=== PATIENT | male | born 1970 | race Caucasian/White ===

== ENCOUNTER 2018-04-10 18:45 | Emergency (ER) | payer MEDICAID ==
[~2018-04-10] VITALS: Ht 182.9 cm; Wt 68.2 kg
[~2018-04-10 18:45] MED LIST: AMOX-580 PO; HYDR-569 PO; IBUP-1986 PO
[2018-04-10] MEDS ORDERED: famotidine/PF 10 mg/ml inj IV ONE (19:40)
[2018-04-10] MEDS ORDERED: metoclopramide 5 mg/ml inj IV ONE (19:40)
[2018-04-10] MEDS ORDERED: normal saline 1000ML IV soln IVB ONE ×4 (19:40→23:05)
[2018-04-10 20:01] LABS: BASOPHILS % (AUTO) 0.6 % (0-1); EOSINOPHILS # (AUTO) 0.1 X10'3 (0-0.9); EOSINOPHILS % (AUTO) 1.7 % (0-6); HEMATOCRIT 52.5 % (42.0-52.0); LYMPHOCYTES # (AUTO) 1.1 X10'3 (1.1-4.8); LYMPHOCYTES % (AUTO) 12.8 % (21-51); MEAN CORPUSCULAR HEMOGLOBIN 31.7 PG (27.0-31.0); MEAN CORPUSCULAR HGB CONC 34.4 % (33.0-36.5); MONOCYTES # (AUTO) 0.3 X10'3 (0-0.9); MONOCYTES % (AUTO) 3.9 % (2-12); PLATELET COUNT 283 X10'3 (140-440); RED BLOOD COUNT 5.71 X10'6 (4.70-6.10); RED CELL DISTRIBUTION WIDTH 13.7 % (11.5-14.5); WHITE BLOOD COUNT 8.6 X10'3 (4.5-11.0)
[2018-04-10 20:07] LABS: HEMOGLOBIN 18.1 g/dl (14.0-17.9)
[2018-04-10 20:17] LABS: ALANINE AMINOTRANSFERASE 27 U/L (12-78); ALBUMIN 5.2 G/DL (3.4-5.0); ALBUMIN/GLOBULIN RATIO 1.1 (1.1-1.5); ALKALINE PHOSPHATASE 119 IU/L (46-116); ANION GAP 16 (8-16); ASPARTATE AMINO TRANSFERASE 30 U/L (10-37); BILIRUBIN,TOTAL 0.9 MG/DL (0.1-1.0); BLOOD UREA NITROGEN 36 MG/DL (7-18); BUN/CREATININE RATIO 13.6 (5.4-32.0); CALCIUM 10.7 MG/DL (8.5-10.1); CHLORIDE 99 MMOL/L (99-107); CREATININE 2.64 MG/DL (0.60-1.10); GLUCOSE 99 MG/DL (70-104); LIPASE 138 U/L (73-393); POTASSIUM 4.1 MMOL/L (3.5-5.1); SODIUM 140 MMOL/L (135-145); eGFR 26 ML/MIN
[2018-04-10] MEDS ORDERED: ringers solution, lactated 1000ml IV soln IV ONE (20:30)
[2018-04-10 22:20] LABS: ALBUMIN 3.8 G/DL (3.4-5.0); ANION GAP 10 (8-16); BLOOD UREA NITROGEN 35 MG/DL (7-18); BUN/CREATININE RATIO 17.6 (5.4-32.0); CALCIUM 8.6 MG/DL (8.5-10.1); CHLORIDE 106 MMOL/L (99-107); CREATININE 1.99 MG/DL (0.60-1.10); GLUCOSE 89 MG/DL (70-104); POTASSIUM 4.1 MMOL/L (3.5-5.1); SODIUM 141 MMOL/L (135-145); TOTAL CARBON DIOXIDE 24.8 MMOL/L (24-32); eGFR 36 ML/MIN
[2018-04-11 05:27] VITALS: BP 118/67
== END 2018-04-11 05:34 | disposition home or self-care (01) ==
LOC: ER 18:46
DX: T67.5XXA Heat exhaustion, unspecified, initial encounter (principal); N28.9 Disorder of kidney and ureter, unspecified; F17.200 Nicotine dependence, unspecified, uncomplicated; F12.90 Cannabis use, unspecified, uncomplicated; Z56.0 Unemployment, unspecified; Z59.0 Homelessness; Z79.899 Other long term (current) drug therapy; X58.XXXA Exposure to other specified factors, initial encounter; Y93.89 Activity, other specified; Y92.89 Other specified places as the place of occurrence of the external cause; Y99.8 Other external cause status
CPT/HCPCS: 36415; 80048; 80053; 83690; 85025; 93005; 96361; 96374; 96375; 99285; J2765; J3490; J7030; J7120

== ENCOUNTER 2019-07-14 20:01 | Emergency (ER) | payer MEDICAID ==
[~2019-07-14] VITALS: Ht 182.9 cm; Wt 81.8 kg
[~2019-07-14 20:01] MED LIST changes: +HYDR-4383 PO; -HYDR-569 PO
[2019-07-14 21:02] VITALS: BP 138/85
[2019-07-14] MEDS ORDERED: LIDOcaine 1% w/epiNEPHrine 1:200,000 30ml vial IM ONE (21:05)
--- NOTE | 2019-07-14 21:51 | NUR ---
pt in bed yelling at police worker.pt is cooperative with the staff ,informed the pt not to scream,pt apologize and verbalized understanding.
== END 2019-07-14 22:59 | disposition home or self-care (01) ==
LOC: ER 20:01
DX: S02.2XXA Fracture of nasal bones, initial encounter for closed fracture (principal); S02.40EA Zygomatic fracture, right side, initial encounter for closed fracture; S01.81XA Laceration without foreign body of other part of head, initial encounter; S01.01XA Laceration without foreign body of scalp, initial encounter; F12.90 Cannabis use, unspecified, uncomplicated; Z59.0 Homelessness; Z56.0 Unemployment, unspecified; Y04.0XXA Assault by unarmed brawl or fight, initial encounter; Y93.89 Activity, other specified; Y92.89 Other specified places as the place of occurrence of the external cause; Y99.9 Unspecified external cause status
CPT/HCPCS: 12002; 12011; 70450; 70486; 99284

== ENCOUNTER 2021-01-15 17:16 | Emergency (ER) | payer MEDICAID ==
[~2021-01-15] VITALS: Ht 170.2 cm; Wt 72.7 kg
[2021-01-15] MEDS ORDERED: LIDOcaine 1% W/epiNEPHrine 1:200,000 10ml vial IJ ONE (17:20)
[2021-01-15] MEDS ORDERED: TETanus/Pertussis (Acell)/Diphther VAC/PF (Tdap-Adult) 0.5ml syringe IMVAC ONE (17:20)
[2021-01-15] MEDS ORDERED: haloperidol lactate 5mg/ml inj IM ONE (17:20)
[2021-01-15] MEDS ORDERED: diphenhydrAMINE 50 mg/ml inj IM ONE (17:20)
[2021-01-15 18:36] LABS: BASOPHILS % (AUTO) 0.7 % (0-1); EOSINOPHILS # (AUTO) 0.1 X10'3 (0-0.9); EOSINOPHILS % (AUTO) 1.6 % (0-6); HEMATOCRIT 46.4 % (42.0-52.0); HEMOGLOBIN 15.8 g/dl (14.0-17.9); LYMPHOCYTES # (AUTO) 1.8 X10'3 (1.1-4.8); LYMPHOCYTES % (AUTO) 30.7 % (21-51); MEAN CORPUSCULAR HEMOGLOBIN 31.1 PG (27.0-31.0); MEAN CORPUSCULAR VOLUME 91.2 FL (78-98); MEAN PLATELET VOLUME 6.5 FL (7.4-10.4); MONOCYTES # (AUTO) 0.4 X10'3 (0-0.9); MONOCYTES % (AUTO) 7.5 % (2-12); NEUTROPHILS # (AUTO) 3.4 X10'3 (1.8-7.7); NEUTROPHILS % (AUTO) 59.5 % (42-75); PLATELET COUNT 279 X10'3 (140-440); RED BLOOD COUNT 5.08 X10'6 (4.70-6.10); RED CELL DISTRIBUTION WIDTH 12.7 % (11.5-14.5); WHITE BLOOD COUNT 5.8 X10'3 (4.5-11.0)
[2021-01-15 18:46] LABS: TOTAL CARBON DIOXIDE 21.3 MMOL/L (24-32)
[2021-01-15 18:55] VITALS: BP 122/83
[2021-01-15 19:18] LABS: ALANINE AMINOTRANSFERASE 28 U/L (12-78); ALBUMIN 3.5 G/DL (3.4-5.0); ALBUMIN/GLOBULIN RATIO 0.9 (1.1-1.5); ALKALINE PHOSPHATASE 72 IU/L (46-116); ANION GAP 15 (8-16); ASPARTATE AMINO TRANSFERASE 34 U/L (10-37); BILIRUBIN,TOTAL 0.2 MG/DL (0.1-1.0); BLOOD UREA NITROGEN 18 MG/DL (7-18); CALCIUM 8.4 MG/DL (8.5-10.1); CHLORIDE 109 MMOL/L (99-107); CREATININE 0.72 MG/DL (0.60-1.10); GLUCOSE 105 MG/DL (70-104); POTASSIUM 3.5 MMOL/L (3.5-5.1); SODIUM 145 MMOL/L (135-145); TOTAL PROTEIN 7.5 G/DL (6.4-8.2); eGFR > 90 ML/MIN
== END 2021-01-15 19:06 ==
LOC: ER 17:17
DX: S01.01XA Laceration without foreign body of scalp, initial encounter (principal); S01.112A Laceration without foreign body of left eyelid and periocular area, initial encounter; G89.29 Other chronic pain; F12.90 Cannabis use, unspecified, uncomplicated; Z20.3 Contact with and (suspected) exposure to rabies; Z59.0 Homelessness; Z72.89 Other problems related to lifestyle; Z56.0 Unemployment, unspecified; Z79.2 Long term (current) use of antibiotics; Z79.899 Other long term (current) drug therapy; W18.39XA Other fall on same level, initial encounter; Y93.89 Activity, other specified; Y92.89 Other specified places as the place of occurrence of the external cause; Y99.8 Other external cause status
CPT/HCPCS: 12002; 12011; 36415; 70450; 70486; 72125; 80053; 85025; 90471; 90715; 96372; 99285; J1200; J1630

== ENCOUNTER 2022-08-01 05:56 | Emergency (ER) | payer MEDICAID ==
[~2022-08-01] VITALS: Ht 182.9 cm; Wt 77.2 kg
[2022-08-01] MEDS ORDERED: ketorolac trometh. 30mg/ml inj. IM ONE (07:25)
[2022-08-01] MEDS ORDERED: CYCL-1 PO (07:34)
[2022-08-01] MEDS ORDERED: ACET-3068 PO (07:34)
[2022-08-01 08:34] VITALS: BP 138/94
== END 2022-08-01 08:29 | disposition home or self-care (01) ==
LOC: ER 05:57
DX: S39.012A Strain of muscle, fascia and tendon of lower back, initial encounter (principal); F12.90 Cannabis use, unspecified, uncomplicated; G89.29 Other chronic pain; Z72.89 Other problems related to lifestyle; Z56.0 Unemployment, unspecified; Z59.00 Homelessness unspecified; Z79.2 Long term (current) use of antibiotics; Z79.899 Other long term (current) drug therapy; X58.XXXA Exposure to other specified factors, initial encounter; Y93.89 Activity, other specified; Y92.89 Other specified places as the place of occurrence of the external cause; Y99.8 Other external cause status
CPT/HCPCS: 96372; 99283; J1885

== ENCOUNTER 2022-08-08 23:50 | Emergency (ER) | payer MEDICAID ==
[~2022-08-08] VITALS: Ht 185.4 cm; Wt 77.0 kg
[~2022-08-08 23:50] MED LIST changes: +ACET-3068 PO; +CYCL-1 PO
[2022-08-09] MEDS ORDERED: GABA600T PO (01:37)
[2022-08-09 02:11] VITALS: BP 127/86
== END 2022-08-09 02:14 | disposition home or self-care (01) ==
LOC: ER 23:50
DX: K46.9 Unspecified abdominal hernia without obstruction or gangrene (principal); R10.32 Left lower quadrant pain; G89.29 Other chronic pain; F12.90 Cannabis use, unspecified, uncomplicated; Z72.89 Other problems related to lifestyle; Z56.0 Unemployment, unspecified; Z59.00 Homelessness unspecified; Z79.899 Other long term (current) drug therapy
CPT/HCPCS: 99281

== ENCOUNTER 2022-08-20 03:51 | Emergency (ER) | payer MEDICAID ==
[~2022-08-20] VITALS: Ht 182.9 cm; Wt 77.3 kg
[~2022-08-20 03:51] MED LIST changes: -ACET-3068 PO; -AMOX-580 PO; -CYCL-1 PO; +GABA600T PO; -HYDR-4383 PO; -IBUP-1986 PO
[2022-08-20 04:56] VITALS: BP 93/62
[2022-08-20] MEDS ORDERED: amox tr/potassium clavulanate 875/125mg TAB PO ONE (05:05)
[2022-08-20] MEDS ORDERED: HYDR-3965 PO (05:18)
[2022-08-20] MEDS ORDERED: AMOX-580 PO (05:18)
[2022-08-20] MEDS ORDERED: ibuprofen tablet 400 MG TABLET PO ONE (05:20)
== END 2022-08-20 05:33 | disposition home or self-care (01) ==
LOC: ER 03:52
DX: L03.115 Cellulitis of right lower limb (principal); M79.671 Pain in right foot; G89.29 Other chronic pain; F12.90 Cannabis use, unspecified, uncomplicated; Z72.89 Other problems related to lifestyle; Z59.00 Homelessness unspecified; Z79.2 Long term (current) use of antibiotics; Z79.899 Other long term (current) drug therapy
CPT/HCPCS: 99283

== ENCOUNTER 2022-09-07 23:54 | Emergency (ER) | payer MEDICAID ==
[~2022-09-07] VITALS: Ht 185.4 cm; Wt 77.3 kg
[~2022-09-07 23:54] MED LIST changes: +AMOX-580 PO; +HYDR-3965 PO
[2022-09-07 23:59] VITALS: BP 132/93
[2022-09-08 02:19] LABS: CLARITY,URINE SLIGHTLY CLOUDY (Clear); COLOR,URINE YELLOW (Yellow); GLUCOSE, URINE NEGATIVE (Neg); KETONES,URINE NEGATIVE (Neg); LEUKOCYTE ESTERASE ,URINE NEGATIVE (Neg); NITRITES, URINE NEGATIVE (Neg); OCCULT BLOOD,URINE LARGE (Neg); PROTEIN,URINE NEGATIVE (Neg); UROBILINOGEN,URINE 0.2 E.U/dL (0.2-1.0)
[2022-09-08 02:24] LABS: UA COLLECTION TYPE CLN CATCH MIDSTREAM
[2022-09-08 02:27] LABS: MUCUS STRANDS FEW /LPF (Neg)
[2022-09-08 02:28] LABS: RBC,URINE TNTC /HPF (0-2); SQUAMOUS EPITHELIAL CELL,UR FEW /LPF (FEW)
[2022-09-08 02:29] LABS: BACTERIA,URINE FEW /HPF (Neg); TRANSITIONAL EPI CELLS,URINE FEW /HPF
[2022-09-08] MEDS ORDERED: cephalexin 250mg capsule PO ONE (02:35)
[2022-09-08] MEDS ORDERED: tamsulosin 0.4mg capsule PO SCH (02:36)
[2022-09-08] MEDS ORDERED: SULF1TAB45 PO (02:41)
[2022-09-08] MEDS ORDERED: FLO0.4C PO (02:41)
--- NOTE | 2022-09-08 02:47 | NUR ---
po meds x2 given
== END 2022-09-08 02:53 | disposition home or self-care (01) ==
LOC: ER 23:59
DX: N30.01 Acute cystitis with hematuria (principal); G89.29 Other chronic pain; M54.9 Dorsalgia, unspecified; F17.200 Nicotine dependence, unspecified, uncomplicated; F12.10 Cannabis abuse, uncomplicated; Z79.899 Other long term (current) drug therapy
CPT/HCPCS: 81001; 87088; 99284

== ENCOUNTER 2023-08-22 19:45 | Emergency (ER) | payer MEDICAID ==
[~2023-08-22] VITALS: Ht 182.9 cm; Wt 77.3 kg
[~2023-08-22 19:45] MED LIST changes: -AMOX-580 PO; -HYDR-3965 PO
[2023-08-22] MEDS ORDERED: cephalexin 500mg capsule PO ONE (22:00)
[2023-08-22] MEDS ORDERED: CEPH-585 PO (22:02)
[2023-08-22 22:10] VITALS: BP 110/79; PULSE 63; RESP 16; TEMP 98.6; O2SAT 98
--- NOTE | 2023-08-22 22:32 | NUR ---
I have reviewed and agree with all interventions, assessments performed and documented by jenn ambriz
== END 2023-08-22 22:36 | disposition home or self-care (01) ==
LOC: ER 19:46
DX: S01.511A Laceration without foreign body of lip, initial encounter (principal); L08.9 Local infection of the skin and subcutaneous tissue, unspecified; F12.90 Cannabis use, unspecified, uncomplicated; Z79.899 Other long term (current) drug therapy; W22.8XXA Striking against or struck by other objects, initial encounter; Y93.89 Activity, other specified; Y92.89 Other specified places as the place of occurrence of the external cause; Y99.8 Other external cause status
CPT/HCPCS: 99283

== ENCOUNTER 2023-08-25 15:58 | Emergency (ER) | payer MEDICAID ==
[~2023-08-25 15:58] MED LIST changes: +CEPH-585 PO
== END 2023-08-25 17:42 | disposition left against medical advice (07) ==
LOC: ER 15:58
DX: Z48.00 Encounter for change or removal of nonsurgical wound dressing (principal); Z53.21 Procedure and treatment not carried out due to patient leaving prior to being seen by health care provider

== ENCOUNTER 2023-09-08 23:49 | Emergency (ER) | payer MEDICAID ==
[~2023-09-08] VITALS: Ht 182.9 cm; Wt 71.4 kg
[2023-09-09 00:20] VITALS: BP 120/82; PULSE 98; RESP 18; TEMP 98.4; O2SAT 99
[2023-09-09] MEDS ORDERED: NAPR-1154 PO (12:10)
== END 2023-09-09 02:09 | disposition left against medical advice (07) ==
LOC: ER 23:50
DX: M79.602 Pain in left arm (principal); Z53.21 Procedure and treatment not carried out due to patient leaving prior to being seen by health care provider
CPT/HCPCS: 99281

== ENCOUNTER 2023-09-09 09:22 | Emergency (ER) | payer MEDICAID ==
[~2023-09-09] VITALS: Ht 182.9 cm; Wt 74.5 kg
[2023-09-09] MEDS ORDERED: NAPR-1154 PO (12:10)
[2023-09-09 12:24] VITALS: BP 115/88; PULSE 84; RESP 17; TEMP 98; O2SAT 100
--- NOTE | 2023-09-09 17:15 | NUR ---
PARTY CHIEF'S GEN ASSESSMENT REVIEWED BY LUX, [facility] CS; APPROVED
== END 2023-09-09 12:31 | disposition home or self-care (01) ==
LOC: ER 09:22
DX: S66.911A Strain of unspecified muscle, fascia and tendon at wrist and hand level, right hand, initial encounter (principal); S66.912A Strain of unspecified muscle, fascia and tendon at wrist and hand level, left hand, initial encounter; X50.0XXA Overexertion from strenuous movement or load, initial encounter; Y93.89 Activity, other specified; Y92.89 Other specified places as the place of occurrence of the external cause; Y99.8 Other external cause status
CPT/HCPCS: 29105; 73090; 99283

== ENCOUNTER 2024-12-07 13:17 | Emergency (ER) | payer MEDICAID ==
[~2024-12-07] VITALS: Ht 180.3 cm; Wt 82.0 kg
[~2024-12-07 13:17] MED LIST changes: -CEPH-585 PO; +NAPR-1154 PO
[2024-12-07 13:22] VITALS: TEMP 97.6
[2024-12-07 14:00] LABS: BASOPHILS % (AUTO) 0.2 % (0-1); EOSINOPHILS % (AUTO) 0.2 % (0-6); HEMATOCRIT 45.6 % (42.0-52.0); HEMOGLOBIN 15.5 g/dl (14.0-17.9); LYMPHOCYTES # (AUTO) 0.6 X10'3 (1.1-4.8); LYMPHOCYTES % (AUTO) 7.6 % (21-51); MEAN CORPUSCULAR HEMOGLOBIN 30.7 PG (27.0-31.0); MEAN CORPUSCULAR VOLUME 90.3 FL (78-98); MONOCYTES # (AUTO) 0.5 X10'3 (0-0.9); MONOCYTES % (AUTO) 5.7 % (2-12); NEUTROPHILS # (AUTO) 7.4 X10'3 (1.8-7.7); NEUTROPHILS % (AUTO) 86.3 % (42-75); PLATELET COUNT 262 X10'3 (140-440); RED BLOOD COUNT 5.05 X10'6 (4.70-6.10); RED CELL DISTRIBUTION WIDTH 13.7 % (11.5-14.5); WHITE BLOOD COUNT 8.5 X10'3 (4.5-11.0)
[2024-12-07 14:25] LABS: ALANINE AMINOTRANSFERASE 21 U/L (12-78); ALBUMIN 4.2 G/DL (3.4-5.0); ALKALINE PHOSPHATASE 87 IU/L (46-116); ANION GAP 9 (8-16); ASPARTATE AMINO TRANSFERASE 27 U/L (10-37); BILIRUBIN,TOTAL 0.8 MG/DL (0.1-1.0); BLOOD UREA NITROGEN 16 MG/DL (7-18); BUN/CREATININE RATIO 11.8 (10.0-20.0); CALCIUM 9.8 MG/DL (8.5-10.1); CHLORIDE 103 MMOL/L (99-107); CREATININE 1.36 MG/DL (0.60-1.10); GLUCOSE 86 MG/DL (70-104); POTASSIUM 3.9 MMOL/L (3.5-5.1); SODIUM 140 MMOL/L (135-145); TOTAL CARBON DIOXIDE 27.9 MMOL/L (24-32); TOTAL PROTEIN 8.3 G/DL (6.4-8.2); eCRCL 68 ML/MIN; eGFR 55 ML/MIN
[2024-12-07 14:35] LABS: LIPASE 57 U/L (16-77)
[2024-12-07 15:13] VITALS: BP 138/97; PULSE 86; O2SAT 100
[2024-12-07 15:27] LABS: BILIRUBIN,URINE SMALL (Neg); CLARITY,URINE SLIGHTLY CLOUDY (Clear); COLOR,URINE YELLOW (Yellow); GLUCOSE, URINE NEGATIVE (Neg); KETONES,URINE 40 mg/dl (Neg); LEUKOCYTE ESTERASE ,URINE NEGATIVE (Neg); NITRITES, URINE NEGATIVE (Neg); OCCULT BLOOD,URINE LARGE (Neg); PROTEIN,URINE TRACE mg/dl (Neg); UROBILINOGEN,URINE 0.2 E.U/dL (0.2-1.0)
[2024-12-07] MEDS ORDERED: FLO0.4C PO (15:28)
[2024-12-07] MEDS ORDERED: IBUP-1984 PO (15:28)
[2024-12-07 15:32] LABS: UA COLLECTION TYPE CLN CATCH MIDSTREAM
[2024-12-07 15:33] LABS: SQUAMOUS EPITHELIAL CELL,UR FEW /LPF (FEW)
[2024-12-07 15:34] LABS: BACTERIA,URINE FEW /HPF (Neg); HYALINE CASTS 0-3 /LPF (NEGATIVE); RBC,URINE 50-100 /HPF (0-2)
[2024-12-07] MEDS: normal saline 1000ML IV soln IVB ONE (15:39)
[2024-12-07] MEDS: ketorolac trometh 15mg/ml vial 15 MG/ML ML IM ONE (15:41)
[2024-12-07 15:53] VITALS: RESP 16
== END 2024-12-07 16:43 | disposition home or self-care (01) ==
LOC: ER 13:17
DX: N20.0 Calculus of kidney (principal); F12.90 Cannabis use, unspecified, uncomplicated
CPT/HCPCS: 36415; 74176; 80053; 81001; 83690; 85025; 87088; 96360; 96372; 99285; J1885; J7030